=== PATIENT | female | born 1995 | race Caucasian/White ===

== ENCOUNTER 2017-01-11 22:44 | Emergency (ER) | payer SELFPAY ==
[~2017-01-11 22:44] MED LIST: ALBU6.7H INH; MEDR4PAK3 PO; ZITH250T PO
[2017-01-11 22:45] VITALS: BP 132/77; PULSE 72; RESP 16; TEMP 98.8; O2SAT 98
--- NOTE | 2017-01-11 22:56 | PD ---
Physical Exam Time Seen by Provider: 22:54 Narrative 21yo F c/o abd pain to RUQ. Reports vomiting x 2days. LMP November 30. Possibility of . Subjective fever. Migraine MURPHY. Denies vaginal discharge. VSS. patient seen in triage, Awaiting bed placement. Data Data Last Documented VS Vital Signs Date Time Temp Pulse Resp B/P Pulse Ox O2 Delivery O2 Flow Rate FiO2 01/11/17 22:45 98.8 72 16 132/77 98 Room Air [facility] Supervised Visit with FANNIE: Aylin Kulkarni Jan 11, 2017 22:56
[2017-01-12 00:32] LABS: BACTERIA, URINE RARE /hpf; BLOOD, URINE NEG (NEG); COMMENT (UR) CULTURE INDICATED; CULTURE IF INDICATED CULTURE INDICATED; GLUCOSE,URINE NEG (NEG); KETONE, URINE 10 mg/dL (NEG); MUCUS URINE MANY /lpf (OCC); NITRITE,URINE NEG (NEG); PH, URINE 5.5 (5.0-8.5); SQUAMOUS EPITHELIAL CELL URINE 5 /hpf (0-5); URINE COLOR YELLOW (YELLW/STRAW)
[2017-01-12] MEDS ORDERED: ZOFR4TAB PO (00:54)
[2017-01-12] MEDS ORDERED: CEPH-460 PO (00:54)
--- NOTE | 2017-01-12 00:54 | PD ---
HPI Chief Complaint: Abdominal Pain Time Seen by Provider: 23:59 Travel History International Travel<30 days: No Contact w/Intl Traveler<30days: No Traveled to known affect area: No History of Present Illness HPI Patient 21-year-old female presents emergency department for evaluation of headache as well as epigastric abdominal cramping and being one week late on her period. Patient is concerned because she thinks she might be . She denies any vaginal bleeding vaginal discharge low pelvic pain. She's also endorsing some mild nausea without vomiting. Denies any changes in stool habits. Denies any sick contacts. 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 HEAD: Atraumatic. Normocephalic. EYES: Pupils equal and round. No scleral icterus. No injection or drainage. ENT: No nasal bleeding or discharge. Mucous membranes pink and moist. Evidence of prior cleft palate reconstruction. NECK: Trachea midline. No JVD. CARDIOVASCULAR: Regular rate and rhythm. No murmur appreciated. RESPIRATORY: No accessory muscle use. Clear to auscultation. Breath sounds equal bilaterally. GASTROINTESTINAL: Abdomen soft, non-tender, nondistended. Hepatic and splenic margins not palpable. MUSCULOSKELETAL: No obvious deformities. No clubbing. No cyanosis. No edema. NEUROLOGICAL: Awake and alert. No obvious cranial nerve deficits. Motor grossly within normal limits. Normal speech. PSYCHIATRIC: Appropriate mood and affect; insight and judgment normal. Data Data Last Documented VS Vital Signs Date Time Temp Pulse Resp B/P Pulse Ox O2 Delivery O2 Flow Rate FiO2 01/11/17 22:45 98.8 72 16 132/77 98 Room Air Orders Urinalysis - C+S If Indicated (01/12/17 00:06) Ed Urine Pregnancytest Poc (01/12/17 00:06) Urine Culture (01/12/17 00:05) Labs Laboratory Tests Test 01/12/17 00:05 Urine Color YELLOW Urine Turbidity HAZY Urine pH 5.5 Urine Specific [place] 1.021 Urine Protein TRACE mg/dL Urine Glucose (UA) NEG mg/dL Urine Ketones 10 mg/dL Urine Occult Blood NEG Urine Nitrite NEG Urine Bilirubin NEG Urine Urobilinogen LESS THAN 2.0 MG/DL Urine Leukocyte Esterase LARGE Urine RBC 3 /hpf Urine WBC 40 /hpf Urine Squamous Epithelial 5 /hpf Cells Urine Bacteria RARE /hpf Urine Mucus MANY /lpf Microscopic Urinalysis Comment CULTURE INDICATED MDM Medical Decision Making Medical Screen Exam Complete: Yes Emergency Medical Condition: Yes Differential Diagnosis , abdominal cramping, urinary tract infection, acute abdomen highly unlikely. Narrative Course Patient 21-year-old female presents with epigastric abdominal cramping as well as headache. She is concerned that she might be and she is a week late on her period. test was performed and is negative. Afterwards patient was offered lab testing and she initially declined. A urinalysis was sent because the patient's urine was quite cloudy. She denied any dysuria. While waiting for the urinalysis to return the patient became impatient and was seen standing at the doorway and stating that she wanted to leave. Urinalysis returned and shows evidence for urinary tract infection. Given her benign abdomen I think is safe for her to be discharged this time without further workup. She will be discharged on antibiotics. Discussed barrier contraception need for STD testing, Pap smear and a regular checkup. Discussed return to ED criteria. She stable for discharge. Diagnosis Primary Impression: UTI (urinary tract infection) Qualified Code: N30.00 - Acute cystitis without hematuria Med/Other Pt SpecificInfo: Prescription(s) given Scripts Cephalexin (Keflex)500 Mg [id number] Mg PO Q6H 5 Days Ref 0 Prov:Antwon Westbrook MD 01/12/17 Ondansetron (Zofran)4 Mg Tab4 Mg PO Q6HR PRN (NAUSEA OR VOMITING) #20 TAB Ref 0 Prov:Antwon Westbrook MD 01/12/17 Disposition: 01 DISCHARGE HOME Condition: Stable Antwon Westbrook MD Jan 12, 2017 00:54
== END 2017-01-12 01:38 | disposition home or self-care (01) ==
LOC: NEPD 22:44
DX: N39.0 Urinary tract infection, site not specified (principal); F17.210 Nicotine dependence, cigarettes, uncomplicated; B96.89 Other specified bacterial agents as the cause of diseases classified elsewhere
CPT/HCPCS: 81001; 84703; 87086; 99284

== ENCOUNTER 2017-09-18 21:26 | Emergency (ER) | payer MEDICAID ==
[~2017-09-18 21:26] MED LIST changes: -ALBU6.7H INH; +CEPH-460 PO; -MEDR4PAK3 PO; -ZITH250T PO; +ZOFR4TAB PO
[2017-09-18 22:30] VITALS: BP 123/69; PULSE 108; RESP 18; TEMP 99
[2017-09-18] MEDS ORDERED: guaiFENesin SOLUTION 200 MG/10 ML CUP PO PRN (22:30)
[2017-09-18 23:11] LABS: BILIRUBIN, URINE NEG (NEG); BLOOD, URINE NEG (NEG); GLUCOSE,URINE NEG (NEG); KETONE, URINE 40 mg/dL (NEG); MUCUS URINE MANY /lpf (OCC); NITRITE,URINE NEG (NEG); SQUAMOUS EPITHELIAL CELL URINE 6 /hpf (0-5); TRANSITIONAL EPI CELLS, URINE <1 /hpf; URINE COLOR YELLOW (YELLW/STRAW); URINE LEUKOCYTE ESTERASE TRACE (NEG)
[2017-09-18] MEDS ORDERED: OSELTAMIVIR PHOSPHATE 75 MG CAP PO SCH (23:15)
[2017-09-18] MEDS ORDERED: DEXTROSE 5%-LACTATED RING INJ 1,000 ML IV ONE (23:15)
--- NOTE | 2017-09-18 23:19 | PD ---
HPI Chief Complaint Cough, nausea, vomiting Travel History International Travel<30 Days: No Contact w/Intl Traveler<30Days: No Known Affected Area: No History of Present Illness HPI 22-year-old , IUP at 22.2 care complicated by asthma The patient presents complaining of a 1-2 day history of sore throat and stuffy nose. She reports a cough started today as well as some throbbing side pains from when she coughs. She reports she felt hot but has not checked her temperature at home she reports she is been vomiting since 11 AM and is not able to hold anything down. She reports that she feels dizzy. She reports lower back achiness. She denies any leaking of fluid or vaginal bleeding. She occasionally feels movement. She denies any cramping. Weeks Gestation: 22 Para: 0 : 1 History Past Medical History Narrative Medical Asthma Obstetric History Obstetric History Past Surgical History Narrative Surgical Cleft lip/palate repair 12 Family History Narrative Family History HTN Social History Alcohol Use: No Tobacco Use: No Substance Abuse: No Allergies-Medications (Allergen,Severity, Reaction): Coded Allergies: No Known Allergies (Verified Allergy, Unknown, 09/18/17) Home Meds Active Scripts Cephalexin (Keflex) 500 Mg Cap, 500 MG PO Q6H for Infection for 5 Days, CAP 0 Refills Prov:Antwon Westbrook MD 01/12/17 Ondansetron (Zofran) 4 Mg Tab, 4 MG PO Q6HR Y for NAUSEA OR VOMITING, #20 TAB 0 Refills Prov:Antwon Westbrook MD 01/12/17 Review of Systems Except as stated in HPI: all other systems reviewed are Neg Gastrointestinal: Nausea, Vomiting Physical Exam Vital Signs Date Time Temp Pulse Resp B/P (MAP) Pulse Ox O2 Delivery O2 Flow Rate FiO2 09/18/17 22:30 99.0 18 09/18/17 22:30 108 123/69 (87) Narrative GENERAL: Well-nourished, well-developed patient. SKIN: Warm and dry. HEAD: Normocephalic and atraumatic. EYES: No scleral icterus. No injection or drainage. ENT: No nasal drainage noted. Mucous membranes pink. Airway patent. NECK: Supple, trachea midline. No JVD. CARDIOVASCULAR: Regular rate and rhythm without murmurs, gallops, or rubs. RESPIRATORY: Breath sounds equal bilaterally. No accessory muscle use. BREASTS: Deferred ABDOMEN/GI: Abdomen soft, non-tender, bowel sounds present, no rebound, no guarding Gravid GENITOURINARY: Deferred FHT's: Appropriate for gestational age as per EMR EXTREMITIES: No cyanosis or edema. BACK: Nontender without obvious deformity. NEUROLOGICAL: Awake and alert. Motor and sensory grossly within normal limits. Five out of 5 muscle strength in all muscle groups. Normal speech. Psychiatric: Grossly normal memory and affect Musculoskeletal: Grossly normal range of motion, gait, muscle strength Data Data Orders Orders Vital Signs (Adult) .ON ADMISSION (09/18/17 22:24) ^ Labor Status (09/18/17 22:24) Guaifenesin Liq (Robitussin Liq) (09/18/17 22:30) Influenzae A/B Antigen (09/18/17 22:43) Vital Signs (Adult) .ON ADMISSION (09/18/17 22:44) ^ Labor Status (09/18/17 22:44) Urinalysis - C+S If Indicated (09/18/17 22:44) Cbc No Diff, Includes Plts (09/18/17 23:14) Comprehensive Metabolic Panel (09/18/17 23:14) D5-Lr (Bolus) Inj (09/18/17 23:15) Oseltamivir (Tamiflu) (09/18/17 23:15) Labs Laboratory Tests Test 09/18/17 22:36 Urine Color YELLOW Urine Turbidity HAZY Urine pH 6.0 Urine Specific [place] 1.036 Urine Protein 30 Urine Glucose (UA) NEG Urine Ketones 40 Urine Occult Blood NEG Urine Nitrite NEG Urine Bilirubin NEG Urine Urobilinogen 2.0 Urine Leukocyte Esterase TRACE Urine RBC 1 Urine WBC 5 Urine Squamous Epithelial Cells 6 Urine Transitional Epithelial Cells <1 Urine Mucus MANY Microscopic Urinalysis Comment CULT NOT INDICATED Date/Time Source Procedure Growth Status 09/18/17 22:30 Nasal Aspirate Influenza Types A,B Antigen (SUZIE) - Final Positive For Flu A Antigen Complete MDM Plan Assessment/plan: 1. IUP at 22.2 2. Influenza: Flu swab came back positive for influenza a, will treat with Tamiflu 75 mg by mouth twice a day. Patient was given first dose here. Strict fever/nausea/vomiting precautions 3. Nausea/vomiting: Labs were drawn and IV fluids given, Zofran 4 mg given. She reports she feels better and is able to tolerate by mouth. She was given 40 mEq of potassium for potassium level of 3.3. 4. well-being heart tones appropriate for gestational age 5. Strict labor precautions 6. Follow-up with primary OB in 2-3 days or sooner if needed 7. UA: Negative Vivi Corral MD Sep 18, 2017 23:19
[2017-09-18] MEDS ORDERED: ONDANSETRON HCL 4 MG/2 ML VIAL IV PUSH ONE (23:30)
[2017-09-18 23:46] LABS: HEMATOCRIT 32.3 % (35.0-46.0); HEMOGLOBIN 11.1 GM/DL (11.6-15.3); MEAN CELL VOLUME 89.3 FL (80.0-100.0); MEAN CORPUSCULAR HEMOGLOBIN 30.7 PG (27.0-34.0); MEAN CORPUSCULAR HGB CONC 34.3 % (32.0-36.0); MEAN PLATELET VOLUME 7.7 FL (7.0-11.0); PLATELET COUNT 199 TH/MM3 (150-450); RED BLOOD COUNT 3.62 MIL/MM3 (4.00-5.30); RED CELL DISTRIBUTION WIDTH 13.3 % (11.6-17.2); WHITE BLOOD COUNT 7.2 TH/MM3 (4.0-11.0)
[2017-09-19 00:03] LABS: ALBUMIN 2.6 GM/DL (3.4-5.0); ALT (GPT) 35 U/L (10-53); AST (GOT) 33 U/L (15-37); BICARBONATE 20.6 MEQ/L (21.0-32.0); CALCIUM 8.2 MG/DL (8.5-10.1); CHLORIDE 106 MEQ/L (98-107); GLOMERULAR FILTRATION RATE 154 ML/MIN (>89); GLUCOSE,RANDOM 78 MG/DL (74-106); SODIUM (NA) 136 MEQ/L (136-145)
[2017-09-19 00:09] LABS: ALKALINE PHOSPHATASE 85 U/L (45-117); BLOOD UREA NITROGEN 8 MG/DL (7-18); TOTAL BILIRUBIN ADULT 0.5 MG/DL (0.2-1.0); TOTAL PROTEIN 6.5 GM/DL (6.4-8.2)
[2017-09-19] MEDS ORDERED: POTASSIUM CHLORIDE 20 MEQ CONTROLLED RELEASE TAB PO ONE (00:45)
== END 2017-09-19 04:21 | disposition home or self-care (01) ==
LOC: HOBED 21:26
DX: O99.512 Diseases of the respiratory system complicating pregnancy, second trimester (principal); J09.X2 Influenza due to identified novel influenza A virus with other respiratory manifestations; O21.2 Late vomiting of pregnancy; Z3A.22 22 weeks gestation of pregnancy
CPT/HCPCS: 80053; 81001; 85027; 87804; 96374; 99284; J2405; J7121

== ENCOUNTER 2017-11-05 14:49 | Emergency (ER) | payer MEDICAID, OTHER ==
--- NOTE | 2017-11-05 15:51 | PD ---
HPI Chief Complaint Bleeding after intercourse Date Seen: Nov 05, 2017 Time Seen: 15:30 Travel History International Travel<30 Days: No Contact w/Intl Traveler<30Days: No Known Affected Area: No History of Present Illness HPI Patient is 22-year-old white female at 29 weeks goes to [facility] for care, and presents complaining of vaginal bleeding noted after intercourse today. She's had no bleeding prior to this in . No other problems some nausea vomiting in early part, baby is active now, no leaking of fluid, patient noted bleeding she says they're somewhat irregular. And red and bright red at times and then the somewhat darker after that she noticed which goes to the bathroom when she wipes., when she sees it is not flowing out but its there when she wipes. heart rate tracing is reactive for 29 weeks and her contractions Weeks Gestation: 29 Para: 0 : 1 History Social History Alcohol Use: No Tobacco Use: No Substance Abuse: No Allergies-Medications (Allergen,Severity, Reaction): Coded Allergies: No Known Allergies (Verified Allergy, Unknown, 09/18/17) Home Meds Active Scripts Cephalexin (Keflex) 500 Mg Cap, 500 MG PO Q6H for Infection for 5 Days, CAP 0 Refills Prov:Antwon Westbrook MD 01/12/17 Ondansetron (Zofran) 4 Mg Tab, 4 MG PO Q6HR Y for NAUSEA OR VOMITING, #20 TAB 0 Refills Prov:Antwon Westbrook MD 01/12/17 Review of Systems General / Constitutional: No: Fever, Weight Gain, Chills, Other Eyes: No: Diploplia, Blurred Vision, Visual changes, Pain, Photophobia HENT: No: Headaches, Vertigo, Lightheadedness Cardiovascular: No: Irregular Rhythm, Chest Pain or Discomfort, Palpitations, Tachycardia, Syncope, Varicosities, Edema, Cyanosis Respiratory: No: Cough, Short of Breath, Other Gastrointestinal: No: Nausea, Vomiting, Diarrhea Genitourinary: Vaginal Bleeding, No: Decreased Urinary Output, Oliguria Musculoskeletal: No: Limited ROM, Weakness, Cramping, Edema, Pain Skin: No Rash, No Itching, No Dryness, No Lumps, No Change in Pigmentation, No Change in Nails, No Alopecia, No Lesions Neurologic: No: Weakness, Dizziness, Syncope, Focal Abnormalities, Coordination Problem, Headache, Slurred Speech, Seizures Psychiatric: No: Depression, Suicidal Ideations, Homicidal Ideation Endocrine: No: Heat Intolerance, Cold Intolerance, Polydipsia, Polyuria, Other Physical Exam Narrative GENERAL: Well-nourished, well-developed patient. SKIN: Warm and dry. HEAD: Normocephalic and atraumatic. EYES: No scleral icterus. No injection or drainage. ENT: No nasal drainage noted. Mucous membranes pink. Airway patent. NECK: Supple, trachea midline. No JVD. CARDIOVASCULAR: Regular rate and rhythm without murmurs, gallops, or rubs. RESPIRATORY: Breath sounds equal bilaterally. No accessory muscle use. BREASTS: Bilateral exam showed no masses , no retractions, no nipple discharge. ABDOMEN/GI: Abdomen soft, non-tender, bowel sounds present, no rebound, no guarding Gravid to [29-] weeks size Fundal Height: [28-] GENITOURINARY: External Genitalia: intact and normal in appearance , minimal blood on vulva speculum exam- moderate blood in vault and blood oozing from cervix which is large and friable Cervix: [bloody with possible discharge [very hard to be definitive due to blood oozing from cx-] Dilatation: [-closed] Effacement: [thick-] Station: [-3] Presentation: [breech by us-] Membranes: [intact ] Uterine Contractions: [none-] FHT's: Category: [1-] Baseline: [-133] Reactive: [-R] Variability: [mod-] Decels: [none-] EXTREMITIES: No cyanosis or edema. BACK: Nontender without obvious deformity. No CVA tenderness. NEUROLOGICAL: Awake and alert. Motor and sensory grossly within normal limits. Five out of 5 muscle strength in all muscle groups. Normal speech. Data Data Orders Orders Ob Poc Ultrasound (11/05/17 ) Labs Has had ultrasound done by me as POC ultrasound --- single intrauterine breech presentation no previa seen,. Placenta is anterior grade 0 , fetus is 27 weeks 2 days size estimated weight-- 2 pounds, ( 131 g), normal amniotic fluid noted, baby is active, heart rate in the 130s., Normal anatomy scan. By this scan the babys lagging behind in growth about 2 weeks MDM Interpretation(s) Patient is 22-year-old white female at 29 weeks sees Reena [facility] for care presents complaining of postcoital bleeding today. First bleeding she's had with this . heart rate is reactive and there are no contractions. On exam there is some blood externally and in the vagina small to moderate amount of mucus tinged blood present with blood oozing from a friable cervix, there is no active bleeding but there is some blood certainly there Impression-postcoital bleeding related to a friable cervix,there is no previa ultrasound rules that out , I can't tell if there is a direct infection of the cervix due to the amount of blood I see. The baby seems to be lagging in growth slightly approximately 2 weeks behind according to todays ultrasound. Today's measurements consistent with 27 weeks 2 days and 2 pounds estimated weight Plan- to observe the patient for another hour approximately if no increase in bleeding probably discharge home to precautionary measures bedrest and observation. Plan Plan to observe the patient mentioned above for any further bleeding if none is seen will be able to discharge the patient today, no intercourse for the foreseeable future, she is to be at bedrest for the next couple of days and to decrease the risk for bleeding and no sex as mentioned, she is to follow-up with her OB provider Diagnosis Diagnosis: Primary Impression: Postcoital bleeding Additional Impression: 29 weeks gestation of Disposition: DISCHARGE HOME Condition: Stable Elroy Paris II, MD Nov 05, 2017 15:51
== END 2017-11-05 17:22 | disposition home or self-care (01) ==
LOC: HOBED 14:49
DX: O46.8X3 Other antepartum hemorrhage, third trimester (principal); N93.0 Postcoital and contact bleeding; Z3A.29 29 weeks gestation of pregnancy
CPT/HCPCS: 76815

== ENCOUNTER 2017-12-11 10:05 | Inpatient (IN) | payer MEDICAID ==
[2017-12-11] VITALS (7 sets, daily range): BP systolic 102–134; BP diastolic 57–82; PULSE 62–82; RESP 18
[~2017-12-11] VITALS: Ht 152.4 cm; Wt 88.0 kg
--- NOTE | 2017-12-11 10:50 | PD ---
HPI Chief Complaint Possible rupture of membranes Date Seen: Dec 11, 2017 (Soni Walls MD) Travel History International Travel<30 Days: No Contact w/Intl Traveler<30Days: No Known Affected Area: No (Soni Walls MD) History of Present Illness HPI Patient is a 22-year-old at 34/2 weeks gestation presents to the [facility] with a chief complaint of possible rupture of membranes. Patient states that she woke up around 9 AM this morning with her thighs and underwear completely soaked in fluid. She went back to sleep and woke up a second time soaked. She states that she pees on herself anytime she coughs or sneezes but this time the fluid did not smell like urine. She has no other complaints today. She denies contractions, abnormal vaginal discharge, vaginal bleeding, fever, chills, or shortness of breath. She does have headaches all the time and has been having nausea and vomiting during the third trimester almost daily. She denies blurry vision and only has chest pain when she coughs and she has been coughing a lot. Patient gets care at [facility] and her labs have been mostly normal except for a positive MSAFP. She is also know to have a short cervix. No cerclage placement. Weeks Gestation: 34 Para: 0 : 1 (Soni Walls MD) History Past Medical History Narrative Medical Asthma (Soni Walls MD) Obstetric History Obstetric History Shortened cervix per (Soni Walls MD) Past Surgical History Narrative Surgical Cleft lip and cleft palate repair in 2011 (Soni Walls MD) Family History Narrative Family History Mom has hypertension. No family history of diabetes (Soni Walls MD) Social History Alcohol Use: No Tobacco Use: Yes ( <Half pack a day, about 5 cigarettes) Substance Abuse: No (Soni Walls MD) Allergies-Medications (Allergen,Severity, Reaction): Coded Allergies: No Known Allergies (Verified Allergy, Unknown, 09/18/17) Home Meds Reported Medications Albuterol 6.7 GM Inh (Proventil Hfa 6.7 GM Inh) 90 Mcg/Act Aer, 2 PUFF INH Q4- 6H Y for SHORTNESS OF BREATH, #1 INHALER 0 Refills 12/11/17 Pnv No.95/Ferrous Fum/Folic AC ( Vitamins Tablet) 28 Mg Iron-800 Mcg Tablet 12/11/17 Discontinued Scripts Cephalexin (Keflex) 500 Mg Cap, 500 MG PO Q6H for Infection for 5 Days, CAP 0 Refills Prov:Antwon Westbrook MD 01/12/17 Ondansetron (Zofran) 4 Mg Tab, 4 MG PO Q6HR Y for NAUSEA OR VOMITING, #20 TAB 0 Refills Prov:Antwon Westbrook MD 01/12/17 Review of Systems General / Constitutional: No: Fever, Chills Eyes: No: Blurred Vision HENT: Headaches Cardiovascular: No: Chest Pain or Discomfort Respiratory: Cough, No: Short of Breath Gastrointestinal: Nausea, Vomiting, No: Abdominal Pain Genitourinary: No: Dysuria (EkoSoni MD) Physical Exam Narrative GENERAL: Well-nourished, well-developed patient. SKIN: Warm and dry. HEAD: Normocephalic and atraumatic. EYES: No scleral icterus. No injection or drainage. ENT: No nasal drainage noted. Mucous membranes pink. Airway patent. NECK: Supple, trachea midline. No JVD. CARDIOVASCULAR: Regular rate and rhythm without murmurs, gallops, or rubs. RESPIRATORY: Breath sounds equal bilaterally. No accessory muscle use. BREASTS: Bilateral exam showed no masses , no retractions, no nipple discharge. ABDOMEN/GI: Abdomen soft, non-tender, bowel sounds present, no rebound, no guarding Gravid abdomen GENITOURINARY: External Genitalia: intact and normal in appearance BUS glands: [-] Cervix: [-] Dilatation: [-] Effacement: [-] Station: [-] Presentation: [-] Membranes: [intact or ruptured] Uterine Contractions: [-] FHT's: Category: I Baseline: 140 Reactive: multiple accels Variability: Moderate Decels: None EXTREMITIES: No cyanosis, minimal edema. BACK: Nontender without obvious deformity. No CVA tenderness. NEUROLOGICAL: Awake and alert. Motor and sensory grossly within normal limits. Five out of 5 muscle strength in all muscle groups. Normal speech. (EkSoni cifunetes MD) Data Data Vital Signs Reviewed: Yes Orders Orders Vital Signs (Adult) .ON ADMISSION (12/11/17 10:44) ^ Labor Status (12/11/17 10:44) ^ Non Stress Test (12/11/17 10:44) Pamg-1 Test .ONCE (12/11/17 10:45) (Soni Walls MD) [facility] Medical Record Reviewed: Yes Interpretation(s) 22 year old at 34/2 presents to be evaluated for possible rupture of membranes. Amnisure is negative. Urine dipstick was significant for specific gravity greater than 1.030 with greater than 300 protein, trace blood and small leukocyte esterase. Plan 1. Intrauterine -FHT category I - reassuring -Not ruptured -BPP done by OB diagnostics 05/08 with TRACEE of 18 -Continue routine care 2. Proteinuria -Blood pressure was initially 138/90 and dropped to 120/78 -UA showed 100 protein, trace occult blood, large leukocyte esterase, and 92 wbc with moderate bacteria - culture indicated -Spot urine protein/creatinine ratio of 1.37 and random urine protein of 247 - both elevated Plan is to admit patient on 24 hour observation for blood pressure monitoring and collection of 24 hr urine protein. Check labs including uric acid. Continue continuous monitoring. DW Dr. Corral (Soni Walls MD) Narrative Course / MDM I personally evaluated and examined patient and performed all vang components of decision making. Reassufing testing per verbal report of BPP 05/08, TRACEE 18. Previous US 32%. BP stable, but will collect 24 hour urine due to elevated PC ratio. Will Rx celestone for FLM in the even pateint requires delivery prior to 37w. [facility] NST report: Indications: IUP at 34w, elevated BP in office, elevate proteinuria FHR baseline in the 120s with moderate terminal computer operator variability, good accelerations , and no decelerations noted. THis is a category 1 FHR tracing and a reactive NST for BPP 07/10. Final dx: gestational HTN, rule out preeclampsia, reassuring testing F/U: continue EFM at this time (Vivi Corral MD) Soni Walls MD Dec 11, 2017 10:50 Vivi Corral MD Dec 12, 2017 14:37
[2017-12-11 11:33] LABS: BACTERIA, URINE MOD /hpf; BILIRUBIN, URINE NEG (NEG); BLOOD, URINE TRACE (NEG); GLUCOSE,URINE NEG (NEG); KETONE, URINE NEG (NEG); MUCUS URINE FEW /lpf (OCC); NITRITE,URINE NEG (NEG); PH, URINE 6.5 (5.0-8.5); SQUAMOUS EPITHELIAL CELL URINE 8 /hpf (0-5); URINE COLOR YELLOW (YELLW/STRAW); URINE LEUKOCYTE ESTERASE LARGE (NEG)
--- NOTE | 2017-12-11 12:09 | PD ---
History of Present Illness History of Present Illness NST report Indications: IUP at 34 cervix, shortened cervix, borderline TRACEE, LOF, elevated BP and protein Findings: FHR baseline in the 120s-130s with moderate skilled nursing variability, good accelerations, and no decelerations noted. FHR is reassuring and reactive for gestational age. F/U: continue EFM Final dx: IUP at 34 cervix, shortened cervix, normal TRACEE with no evidence of PPROM, elevated BP and protein creatinine ratio Vivi Corral MD Dec 11, 2017 12:09
[2017-12-11] MEDS ORDERED: SODIUM CHLORIDE 0.9% FLUSH 10 ML FLUSH IV FLUSH PRN (12:15)
[2017-12-11] MEDS ORDERED: ACETAMINOPHEN 325 MG TAB PO PRN (12:15)
[2017-12-11] MEDS ORDERED: ONDANSETRON HCL 4 MG/2 ML VIAL IV PUSH PRN (12:15)
--- NOTE | 2017-12-11 12:25 | HHI.HP ---
History & Physical H&P [facility] OB ED Note (Detail) Patient Name: Edith Hastings Unit Number: [id number] Date of : 1995 Patient Status: Admitted Inpatient (obs) Attending Doctor: Vivi Corral MD HPI HPI Chief Complaint Possible rupture of membranes Date Seen: Dec 11, 2017 Travel History International Travel<30 Days: No Contact w/Intl Traveler<30Days: No Known Affected Area: No History of Present Illness HPI Patient is a 22-year-old at 34/2 weeks gestation presents to the [facility] ED with a chief complaint of possible rupture of membranes. Patient states that she woke up around 9 AM this morning with her thighs and underwear completely soaked in fluid. She went back to sleep and woke up a second time soaked. She states that she pees on herself anytime she coughs or sneezes but this time the fluid did not smell like urine. She has no other complaints today. She denies contractions, abnormal vaginal discharge, vaginal bleeding, fever, chills, or shortness of breath. She does have headaches all the time and has been having nausea and vomiting during the third trimester almost daily. She denies blurry vision and only has chest pain when she coughs and she has been coughing a lot. Patient gets care at [facility] and her labs have been mostly normal except for a positive MSAFP. She is also known to have a short cervix. No cerclage placement. Weeks Gestation: 34 Para: 0 : 1 History (Limited) History Past Medical History Narrative Medical Asthma Obstetric History Obstetric History Shortened cervix per Past Surgical History Narrative Surgical Cleft lip and cleft palate repair in 2011 Family History Narrative Family History Mom has hypertension. No family history of diabetes Social History Alcohol Use: No Tobacco Use: Yes ( <Half pack a day, about 5 cigarettes) Substance Abuse: No Allergies-Medications Allergies-Medications (Allergen,Severity, Reaction): Coded Allergies: No Known Allergies (Verified Allergy, Unknown, 09/18/17) Home Meds Active Scripts Cephalexin (Keflex) 500 Mg Cap, 500 MG PO Q6H for Infection for 5 Days, CAP 0 Refills Prov:Antwon Westbrook MD 4/14/17 Ondansetron (Zofran) 4 Mg Tab, 4 MG PO Q6HR Y for NAUSEA OR VOMITING, #20 TAB 0 Refills Prov:Antwon Westbrook MD 01/12/17 ROS Review of Systems General / Constitutional: No: Fever, Chills Eyes: No: Blurred Vision HENT: Headaches Cardiovascular: No: Chest Pain or Discomfort Respiratory: Cough, No: Short of Breath Gastrointestinal: Nausea, Vomiting, No: Abdominal Pain Genitourinary: No: Dysuria Physical Exam Physical Exam Narrative GENERAL: Well-nourished, well-developed patient. SKIN: Warm and dry. HEAD: Normocephalic and atraumatic. EYES: No scleral icterus. No injection or drainage. ENT: No nasal drainage noted. Mucous membranes pink. Airway patent. NECK: Supple, trachea midline. No JVD. CARDIOVASCULAR: Regular rate and rhythm without murmurs, gallops, or rubs. RESPIRATORY: Breath sounds equal bilaterally. No accessory muscle use. BREASTS: Bilateral exam showed no masses , no retractions, no nipple discharge. ABDOMEN/GI: Abdomen soft, non-tender, bowel sounds present, no rebound, no guarding Gravid abdomen GENITOURINARY: External Genitalia: intact and normal in appearance BUS glands: [-] Cervix: [-] Dilatation: [-] Effacement: [-] Station: [-] Presentation: [-] Membranes: intact Uterine Contractions: [-] FHT's: Category: I Baseline: 140 Reactive: multiple accels Variability: Moderate Decels: None EXTREMITIES: No cyanosis, minimal edema. BACK: Nontender without obvious deformity. No CVA tenderness. NEUROLOGICAL: Awake and alert. Motor and sensory grossly within normal limits. Five out of 5 muscle strength in all muscle groups. Normal speech. Data Data Data Vital Signs Reviewed: Yes Orders Orders Vital Signs (Adult) .ON ADMISSION (12/11/17 10:44) ^ Labor Status (12/11/17 10:44) ^ Non Stress Test (12/11/17 10:44) Pamg-1 Test .ONCE (12/11/17 10:45) [facility] Medical Record Reviewed: Yes Interpretation(s) 22 year old at 34/2 presents to be evaluated for possible rupture of membranes. Amnisure is negative. Urine dipstick was significant for specific gravity greater than 1.030 with greater than 300 protein, trace blood and small leukocyte esterase. Plan 1. Intrauterine -FHT category I - reassuring -Not ruptured -BPP done by OB diagnostics 05/08 with TRACEE of 18 -Continue routine care 2. Proteinuria -Blood pressure was initially 138/90 and dropped to 120/78 -UA showed 100 protein, trace occult blood, large leukocyte esterase, and 92 wbc with moderate bacteria - culture indicated -Spot urine protein/creatinine ratio of 1.37 and random urine protein of 247 - both elevated Plan is to admit patient on 24 hour observation for blood pressure monitoring and collection of 24 hr urine protein. Check labs including uric acid. Continue continuous monitoring. DW Dr. Corral (Soni Walls MD) H&P I personally evaluated and examined patient and performed all vang components of decision making. No evidence of ROM. I personally reviewed FHR tracing. See [facility] note for FHR documentation and other attending notes. SMS (Vivi Corral MD) Soni Walls MD Dec 11, 2017 12:25 Vivi Corral MD Dec 12, 2017 14:38
[2017-12-11 13:35] LABS: AUTOMATED NEUTROPHIL # 6.1 TH/MM3 (1.8-7.7); BASOPHIL % 0.3 % (0.0-2.0); EOSINOPHIL # 0.2 TH/MM3 (0-0.4); EOSINOPHIL % 2.1 % (0.0-4.0); HEMATOCRIT 31.1 % (35.0-46.0); HEMOGLOBIN 11.1 GM/DL (11.6-15.3); LYMPH % 25.1 % (9.0-44.0); LYMPHOCYTE # 2.3 TH/MM3 (1.0-4.8); MEAN CELL VOLUME 89.4 FL (80.0-100.0); MEAN CORPUSCULAR HEMOGLOBIN 31.8 PG (27.0-34.0); MEAN CORPUSCULAR HGB CONC 35.5 % (32.0-36.0); MEAN PLATELET VOLUME 8.3 FL (7.0-11.0); MONO % 6.5 % (0.0-8.0); MONOCYTE # 0.6 TH/MM3 (0-0.9); PLATELET COUNT 210 TH/MM3 (150-450); RED BLOOD COUNT 3.48 MIL/MM3 (4.00-5.30); RED CELL DISTRIBUTION WIDTH 13.9 % (11.6-17.2); WHITE BLOOD COUNT 9.2 TH/MM3 (4.0-11.0)
[2017-12-11] MEDS: BETAMETHASONE SOD PHOS/ACETATE SUSP 30 MG/5 ML VIAL IM SCH (13:37)
[2017-12-11] MEDS ORDERED: ALBU6.7H INH (13:39)
[2017-12-11] MEDS ORDERED: PRENTAB7 (13:39)
[2017-12-11] MEDS: SODIUM CHLORIDE 0.9% FLUSH 10 ML FLUSH IV FLUSH SCH (21:30)
[2017-12-12] VITALS (50 sets, daily range): BP systolic 106–151; BP diastolic 52–107; PULSE 64–98; RESP 16–19; TEMP 97.7–98.3; O2SAT 88–99
[2017-12-12] MEDS ORDERED: MULTIVIT/MIN/PREN/FOL AC/IRON PRENATAL TAB PO SCH (09:00)
[2017-12-12] MEDS: SODIUM CHLORIDE 0.9% FLUSH 10 ML FLUSH IV FLUSH SCH ×2 (09:00→21:37)
[2017-12-12] MEDS ORDERED: LACTATED RINGER'S 1000 ML INJ 1,000 ML IV SCH ×3 (09:30→16:26)
[2017-12-12] MEDS ORDERED: LACTATED RINGER'S 1000 ML INJ 1,000 ML IV ONE ×2 (09:35→12:00)
--- NOTE | 2017-12-12 09:54 | HHI.PR ---
Soni Walls MD Dec 12, 2017 09:54
[2017-12-12] MEDS ORDERED: MORPHINE SULFATE PF 5 MG/10 ML VIAL ONE (10:01)
[2017-12-12] MEDS ORDERED: ONDANSETRON HCL 4 MG/2 ML VIAL ONE (10:07)
--- NOTE | 2017-12-12 10:14 | HHI.PR ---
Subjective Remarks [facility] Attending Patient was admitted for elevated PC ratio, although had primarily normal BP in [facility]. She was admitted for 23 hour observation for a 24 hour urine due to the elevated PC ratio and received one dose of celestone. A review of the patient's records showed the patient had a U/S on 12/13/17 was 1841g (32%). This morning, patient was noted to have a 3 minute deceleration to the 80s to 90s with resolution to baseline, then to 90s-100s for an additional 2-3 minutes and again resolution to baseline of 110s-120s at about 8:50am. The patient was placed on O2. IVF were administered. The patient had a <1 minute variable appearing decel at 9:13am, followed by resolution to baseline. At 9:28, the patient was noted to have another deceleration to to the 60s-70s for 2 minutes, again with resolution to baseline with good LTV, good accels. Despite the decels, the fetus remained good variability throughout. The decision was made to proceed with delivery due to several decelerations over the period fo 45 minutes and the concern for wellbeing should the pattern persist. . US was ordered for TRACEE/BPP yesterday, but Ob diagnostics repeated anatomic survey yesterday as patient had never been scanned here with EFW 1738, BPP 8/8, and SD ratio 2.6, although during verbal report there was no indication of abnormality. The patient was consented for delivery with risks including but not limited to pain, infection, bleeding, injury to other organs like the bladder, bowels, nerves, vessels, injury to the baby, need for repeat operation, need for blood transfusion, need for hysterectomy, wound infection/ breakdown, and other possible complications. We discussed that the would likely require a NICU stay due to prematurity. We also discussed the alternative of delaying delivery for more monitoring and possibly her second dose of celestone, but that if we did not proceedproceeding with delivery, we are risking potential adverse / outcomes should they become clearly repetitive pattern of decelerations and or prolonged bradycardia as well as increased maternal risks with the stat delivery. The heart rate tracing after the decision was made for delivery was overall reassuring with baseline remaining in the 110s to 120s, moderate long- term variability, good accelerations, and no repetitive pattern of decelerations. Dr. Paris was given report on the patient and proceeded to the OR for delivery. Objective Vital Signs Date Time Temp Pulse Resp B/P (MAP) Pulse Ox O2 Delivery O2 Flow Rate FiO2 12/12/17 08:55 81 12/12/17 08:41 79 128/65 (86) 12/12/17 08:40 97.9 16 12/12/17 00:25 74 124/52 (76) 12/12/17 00:24 98.2 12/12/17 00:24 16 12/11/17 20:00 80 116/60 (78) 12/11/17 13:51 75 133/57 (82) 12/11/17 13:50 18 12/11/17 11:31 62 120/78 (92) 12/11/17 11:16 73 102/82 (89) 12/11/17 11:01 82 124/80 (95) 12/11/17 10:58 67 134/72 (92) Result Diagram: 12/11/17 1235 Vivi Corral MD Dec 12, 2017 10:14
[2017-12-12] MEDS ORDERED: CITRIC ACID-SODIUM CITRATE LIQ 30 ML UDC PO SCH (11:15)
[2017-12-12] MEDS ORDERED: SIMETHICONE 80 MG CHEWABLE TAB PO PRN (11:30)
[2017-12-12] MEDS ORDERED: DOCUSATE SODIUM 50 MG/SENNA 8.6 MG TAB PO PRN (11:30)
[2017-12-12] MEDS ORDERED: SODIUM CHLORIDE 0.9% FLUSH 10 ML FLUSH IV FLUSH PRN (11:30)
[2017-12-12] MEDS ORDERED: ACETAMINOPHEN 325 MG TAB PO PRN (11:30)
[2017-12-12] MEDS ORDERED: OXYTOCIN 30 UNITS-500ML PREMIX 500 ML IV ONE (11:30)
[2017-12-12] MEDS ORDERED: KETOROLAC TROMETHAMINE 60 MG/2 ML (IM) VIAL IM PRN (11:30)
[2017-12-12] MEDS ORDERED: ONDANSETRON HCL 4 MG/2 ML VIAL IV PUSH PRN (11:30)
[2017-12-12] MEDS ORDERED: oxyCODONE/ACETAMINOPHEN 5 MG/325 MG TAB PO PRN (11:30)
[2017-12-12] MEDS ORDERED: DEXAMETHASONE SOD PHOS 4 MG/ML VIAL IV ONE (12:00)
[2017-12-12] MEDS ORDERED: MAGNESIUM SULFATE 4 GM PREMIX 100 ML ONE (12:00)
[2017-12-12] MEDS ORDERED: OXYTOCIN 10 UNIT/ML AMP IV ONE (12:00)
[2017-12-12] MEDS ORDERED: MAGNESIUM SULFATE 4 GM PREMIX 100 ML IV ONE (12:00)
[2017-12-12] MEDS ORDERED: ceFAZolin INJ 1,000 MG VIAL IV ONE (12:00)
[2017-12-12] MEDS ORDERED: PHENYLEPH/NS 1000 MCG/10 ML SYR IV ONE (12:00)
[2017-12-12] MEDS ORDERED: MAGNESIUM SULFATE 40 GM PREMIX 1,000 ML ONE (12:01)
[2017-12-12] MEDS ORDERED: MAGNESIUM SULFATE 40 GM PREMIX 1,000 ML IV SCH (12:30)
--- NOTE | 2017-12-12 12:39 | MP ---
cc: Elroy Paris MD DATE OF OPERATION: 12/12/2017 PREOPERATIVE DIAGNOSIS: 34-1/2 week intrauterine with severe preeclampsia, fetus with IUGR and a nonreassuring heart rate tracing. POSTOPERATIVE DIAGNOSIS: 34-1/2 week intrauterine with severe preeclampsia, fetus with IUGR and a nonreassuring heart rate tracing. PROCEDURE PERFORMED: Primary low transverse section . SURGEON: Elroy Paris MD ANESTHESIA: Spinal. PREOP NOTE: Patient is a 22-year-old white female G1, P0 at 34 weeks and 3 days who presented referred from [facility]'s clinic for elevated proteinuria and blood pressure. She was noted to have elevated protein creatinine ratio of 1.2. She was monitored. Ultrasound done showed intrauterine growth restriction of less than the 3rd percentile. She was monitored, noted to have spontaneous bradycardic episodes repetitively spaced out, but was a repetitive situation. She received one dose of steroids IM. It was felt the patient needed delivery at that time transabdominally due to nonreassuring heart rate tracing in the face of PIH with IUGR. PROCEDURE: The patient was taken to the operating room, placed in the supine position on the operating room table. After adequate spinal anesthesia was administered, she was prepped and draped for abdominal surgery. A Pfannenstiel incision was made in the lower abdomen and carried to the fascia sharply. The fascia was dissected off the rectus muscle and the rectus split in the midline. The peritoneal cavity entered sharply. The bladder blade place for the incision and the visceral peritoneum reflected off the lower uterine segment and bladder behind the bladder blade. A transverse hysterotomy was made and extended bluntly bilaterally. Clear fluid noted. A female was delivered at 10:39 a.m. weight 1900 g. 's were 6 and 9. Cord pH 7.29. There were no complications at delivery. Delayed cord clamping was done. Cord blood was obtained. The placenta was sent to pathology. The uterus exteriorized. The hysterotomy closed with a running layer of 0 chromic followed by imbricating suture of same. Hemostasis achieved. The bladder reapproximated with a running layer of 2-0 Vicryl . The uterus elevated. The ovaries and tubes noted to be normal. The blood was suctioned from the cul-de-sac and gutters. The uterus was replaced in the peritoneal cavity. The parieto-peritoneum closed in a running layer of 2-0 Vicryl . The muscle reapproximated with stick ties of chromic and Vicryl . The fascia closed with a running layer of 0 Vicryl . The subcutaneous tissue reapproximated with a 3-0 plain catgut suture in a running fashion. Skin closed with 3-0 Monocryl subcuticular stitch. A pressure dressing with Steri-Strips applied. The estimated blood loss was 500 cc. There were no complications. The sponge and needle counts correct x 2. The baby taken to the NICU with nursery staff. Mother to recovery room doing well. MD LUIS FELIPE Martinez/KARINE , 11:35 AM , 12:38 PM
[2017-12-12 12:56] LABS: ALBUMIN 2.3 GM/DL (3.4-5.0); AST (GOT) 18 U/L (15-37); BLOOD UREA NITROGEN 7 MG/DL (7-18); CALCIUM 8.5 MG/DL (8.5-10.1); CHLORIDE 107 MEQ/L (98-107); CREATININE 0.59 MG/DL (0.50-1.00); GLOMERULAR FILTRATION RATE 127 ML/MIN (>89); GLUCOSE,RANDOM 73 MG/DL (74-106); SODIUM (NA) 139 MEQ/L (136-145)
[2017-12-12 12:57] LABS: ALT (GPT) 12 U/L (10-53)
[2017-12-12] MEDS: BETAMETHASONE SOD PHOS/ACETATE SUSP 30 MG/5 ML VIAL IM SCH (13:00)
[2017-12-12 13:05] LABS: ALKALINE PHOSPHATASE 170 U/L (45-117); TOTAL BILIRUBIN ADULT 0.3 MG/DL (0.2-1.0); TOTAL PROTEIN 5.8 GM/DL (6.4-8.2)
[2017-12-12] MEDS ORDERED: diphenhydrAMINE HCL 50 MG/ML VIAL IM ONE (16:30)
[2017-12-12] MEDS: ceFAZolin 2 GM PREMIX 50 ML IV SCH (18:54)
[2017-12-12] MEDS ORDERED: SODIUM CHLORIDE 0.9% FLUSH 10 ML FLUSH IV FLUSH SCH (21:00)
[2017-12-12] MEDS ORDERED: ZOLPIDEM TARTRATE 5 MG TAB PO PRN (21:00)
[2017-12-12] MEDS ORDERED: OXYTOCIN 30 UNITS-500ML PREMIX 500 ML IV PRN (21:30)
[2017-12-12] MEDS: oxyCODONE/ACETAMINOPHEN 5 MG/325 MG TAB PO PRN (23:16)
[2017-12-13 00:01] VITALS: BP 120/74; PULSE 84
[2017-12-13 00:50] VITALS: BP 118/81; PULSE 65; RESP 16; TEMP 97.7; O2SAT 95
[2017-12-13] MEDS ORDERED: NICOTINE 14 MG/24 HR PATCH T-DERMAL ONE (01:45)
[2017-12-13] MEDS: ceFAZolin 2 GM PREMIX 50 ML IV SCH (02:34)
[2017-12-13 04:30] VITALS: BP 133/76; PULSE 78; RESP 16; TEMP 97.9
[2017-12-13 05:42] LABS: AUTOMATED NEUTROPHIL # 11.2 TH/MM3 (1.8-7.7); BASOPHIL % 0.1 % (0.0-2.0); HEMATOCRIT 28.5 % (35.0-46.0); HEMOGLOBIN 9.6 GM/DL (11.6-15.3); LYMPH % 12.5 % (9.0-44.0); LYMPHOCYTE # 1.7 TH/MM3 (1.0-4.8); MEAN CELL VOLUME 88.2 FL (80.0-100.0); MEAN CORPUSCULAR HEMOGLOBIN 29.6 PG (27.0-34.0); MEAN CORPUSCULAR HGB CONC 33.6 % (32.0-36.0); MEAN PLATELET VOLUME 8.6 FL (7.0-11.0); MONO % 4.8 % (0.0-8.0); MONOCYTE # 0.7 TH/MM3 (0-0.9); NEUT % 82.6 % (16.0-70.0); PLATELET COUNT 208 TH/MM3 (150-450); RED BLOOD COUNT 3.23 MIL/MM3 (4.00-5.30); RED CELL DISTRIBUTION WIDTH 14.1 % (11.6-17.2); WHITE BLOOD COUNT 13.6 TH/MM3 (4.0-11.0)
--- NOTE | 2017-12-13 07:29 | HHI.OB ---
Subjective Post Operative Day: 1 Remarks Postop day #1. AFVSS overnight. Pain currently 6/10. Percocet did not help much. Encouraged to try Motrin. Lochia < a period. Denies dysuria. She is feeding the baby via breast and bottle. Encouraged her to pump at home. Appetite good. No nausea or vomiting. Positive flatus. Negative bowel movement. Ambulating well. Denies calf pain, shortness of breath, or chest pain. Otherwise, she is doing well this morning and has no other complaints. Objective Vitals/I&O Vital Signs Date Time Temp Pulse Resp B/P (MAP) Pulse Ox O2 Delivery O2 Flow Rate FiO2 12/13/17 04:30 97.9 78 16 133/76 (95) 12/13/17 00:50 97.7 95 12/13/17 00:50 65 12/13/17 00:50 16 12/13/17 00:50 118/81 (93) 12/13/17 00:16 17 12/13/17 00:01 84 120/74 (89) 12/12/17 23:01 67 122/61 (81) 12/12/17 22:01 77 111/57 (75) 12/12/17 21:01 78 122/73 (89) 12/12/17 20:01 75 124/69 (87) 12/12/17 19:37 97.9 17 12/12/17 19:01 84 123/66 (85) 12/12/17 18:30 17 12/12/17 18:01 87 120/72 (88) 12/12/17 17:40 71 96 12/12/17 17:35 73 94 12/12/17 17:30 90 98 12/12/17 17:30 98.3 16 12/12/17 17:25 93 96 12/12/17 17:20 64 91 12/12/17 17:15 64 89 12/12/17 17:10 82 94 12/12/17 17:05 90 95 12/12/17 17:01 90 106/65 (79) 12/12/17 17:00 89 95 12/12/17 16:58 17 12/12/17 16:55 67 88 12/12/17 16:50 75 92 12/12/17 16:45 81 92 12/12/17 16:41 82 116/67 (83) 12/12/17 16:35 83 96 12/12/17 16:30 79 93 12/12/17 16:25 90 95 12/12/17 16:20 97 97 12/12/17 16:15 84 94 12/12/17 16:10 88 93 12/12/17 16:05 85 93 12/12/17 16:00 88 95 12/12/17 15:20 95 96 12/12/17 15:15 96 95 12/12/17 15:10 93 95 12/12/17 15:05 91 95 12/12/17 15:02 16 12/12/17 15:01 94 123/69 (87) 12/12/17 15:00 98 95 12/12/17 14:15 17 12/12/17 14:15 96 12/12/17 14:14 91 132/82 (99) 12/12/17 12:30 66 16 117/63 (81) 99 12/12/17 12:30 97.7 12/12/17 12:15 76 17 115/56 (75) 99 12/12/17 12:00 78 17 98 12/12/17 12:00 151/107 (122) 12/12/17 12:00 120/61 (80) 12/12/17 11:45 79 19 141/74 (96) 98 12/12/17 11:25 97.7 84 17 119/55 (76) 98 12/12/17 08:55 81 12/12/17 08:41 79 128/65 (86) 12/12/17 08:40 97.9 16 Result Diagram: 12/13/17 0514 12/11/17 1235 Objective Remarks GENERAL: Well-nourished, well-developed patient. CARDIOVASCULAR: Regular rate and rhythm without murmurs, gallops, or rubs. RESPIRATORY: Breath sounds equal bilaterally. No accessory muscle use. ABDOMEN/GI: Abdomen soft, non-tender, bowel sounds present. Incision: Clean, dry and intact. Fundus: Firm, non-tender below umbilicus. GENITOURINARY: Light to moderate bleeding. EXTREMITIES: No cyanosis or edema, non-tender, without signs of DVT. Medications and IVs Current Medications Medications (Trade) Dose Ordered Sig/Ramu Route Start Time Stop Time Status Last Admin (Stuartnatal Plus 3 ) 1 tab DAILY PO 12/12/17 09:00 (NS Flush) 2 ml BID IV FLUSH 12/11/17 21:00 12/11/17 21:30 (NS Flush) 2 ml UNSCH PRN IV FLUSH 12/11/17 12:15 (Bicitra Liq) 30 ml NETWORK PLANNER PO 12/12/17 11:15 12/16/17 11:14 12/12/17 11:55 Cefazolin Sodium 1000 mg/Sodium Chloride 100 ml @ 200 mls/hr NETWORK PLANNER IV 12/12/17 10:45 12/16/17 10:44 Lactated Ringer's 1,000 ml @ 100 mls/hr Q10H IV 12/12/17 16:26 12/13/17 12:25 Oxytocin 500 ml @ 100 mls/hr UNSCH X1 PRN IV 12/12/17 21:30 12/13/17 21:29 (Mylicon Chew) 80 mg QID PRN PO 12/12/17 11:30 (Tylenol) 650 mg Q6H PRN PO 12/12/17 11:30 (Motrin) 600 mg Q6H PRN PO 12/12/17 11:30 (Toradol Inj) 60 mg UNSCH X1 PRN IM 12/12/17 11:30 12/13/17 11:29 (Percocet 5-325 Mg) 1 tab Q4H PRN PO 12/12/17 11:30 12/12/17 23:16 (Percocet 5-325 Mg) 2 tab Q4H PRN PO 12/12/17 11:30 (Lucie-Colace) 2 tab Q12H PRN PO 12/12/17 11:30 (Ambien) 5 mg HS PRN PO 12/12/17 21:00 (M-M-R Ii Inj) 0.5 ml ONCE ONCE SQ 12/13/17 16:00 12/13/17 16:01 (Boostrix Inj) 0.5 ml ONCE ONCE IM 12/13/17 16:00 12/13/17 16:01 (Zofran Inj) 4 mg Q6H PRN IV PUSH 12/12/17 11:30 Magnesium Sulfate 1,000 ml @ 50 mls/hr Q20H IV 12/12/17 12:30 12/12/17 12:09 (Habitrol 14 Mg Patch.24 Hr) 1 patch DAILY T-DERMAL 12/13/17 09:00 Miscellaneous Information 1 HS T-DERMAL 12/13/17 21:00 Assessment/Plan Assessment and Plan 22 y/o female who is POD#1 s/p CS for distress and IUGR -Continue routine care -Percocet and Motrin PRN pain -Pericolase PRN for constipation -Encouraged OOB. Advised pelvic rest for 6 wks -Will need a follow-up appointment within 1 week for incision check -Re: ctrl -does not want control at this time. She will remain abstinent for 6 weeks and decide during that time Pre-eclampsia -Was on magnesium for 12 hours -Blood pressures have been within normal limits -no requirement for medications at this time -She may need blood pressure check Discussed with Dr. Paris Discharge Planning Discharge in 2-3 days. Baby is currently in the NICU. She may need to stay- close room after discharge. Soni Walls MD Dec 13, 2017 07:29
[2017-12-13] MEDS ORDERED: diphenhydrAMINE HCL 25 MG CAP PO PRN (07:30)
[2017-12-13 08:00] VITALS: BP 118/75; PULSE 71; RESP 18; TEMP 97.7; O2SAT 95
[2017-12-13] MEDS ORDERED: NICOTINE 14 MG/24 HR PATCH T-DERMAL SCH (09:00)
[2017-12-13] MEDS: IBUPROFEN 600 MG TAB PO PRN ×3 (09:25→22:44)
[2017-12-13] MEDS ORDERED: PORACTANT ALFA 120 MG/1.5 ML VIAL I-TRACHE ONE (11:00)
[2017-12-13 12:00] VITALS: BP 109/78; PULSE 87; RESP 20; TEMP 97.7; O2SAT 97
[2017-12-13] MEDS: oxyCODONE/ACETAMINOPHEN 5 MG/325 MG TAB PO PRN (15:35)
[2017-12-13] MEDS ORDERED: MEASLES, MUMPS, RUBELLA VACCINE 0.5 ML VIAL SQ ONE (16:00)
[2017-12-13] MEDS ORDERED: DIPHTH/TETANUS/ACEL PERTUSSIS (BOOSTER) 0.5 ML VIAL/PFS IM ONE (16:00)
[2017-12-13 19:25] VITALS: BP 125/69; PULSE 70; RESP 16; TEMP 98.3
[2017-12-13] MEDS ORDERED: REMOVE OLD NICODERM (NICOTINE) PATCH T-DERMAL SCH (21:00)
[2017-12-14 00:14] VITALS: PULSE 84; RESP 16; TEMP 97.8
[2017-12-14 00:15] VITALS: BP 126/73
[2017-12-14 04:51] VITALS: BP 110/64; PULSE 86; RESP 18; TEMP 97.9
--- NOTE | 2017-12-14 06:58 | HHI.OB ---
Subjective Post Operative Day: 2 Remarks Postop day #2. AFVSS overnight. Pain well controlled. Lochia < a period. Denies dysuria. She is feeding the baby via breast and bottle. Pumped once so far. Appetite good. No nausea or vomiting. Positive flatus. Ambulating well. Denies calf pain, shortness of breath, or chest pain. Otherwise, she is doing well this morning and has no other complaints. Objective Vitals/I&O Vital Signs Date Time Temp Pulse Resp B/P (MAP) Pulse Ox O2 Delivery O2 Flow Rate FiO2 12/14/17 04:51 97.9 86 18 110/64 (79) 12/14/17 00:15 126/73 (90) 12/14/17 00:14 84 16 12/14/17 00:14 97.8 12/13/17 19:25 98.3 70 16 125/69 (87) 12/13/17 12:00 87 20 109/78 (88) 97 12/13/17 12:00 97.7 12/13/17 08:00 97.7 71 18 118/75 (89) 95 Result Diagram: 12/13/17 0514 12/11/17 1235 Objective Remarks GENERAL: Well-nourished, well-developed patient. CARDIOVASCULAR: Regular rate and rhythm without murmurs, gallops, or rubs. RESPIRATORY: Breath sounds equal bilaterally. No accessory muscle use. ABDOMEN/GI: Abdomen soft, non-tender, bowel sounds present. Incision: Clean, dry and intact. Fundus: Firm, non-tender below umbilicus. GENITOURINARY: Light to moderate bleeding. EXTREMITIES: No cyanosis or edema, non-tender, without signs of DVT. Medications and IVs Current Medications Medications (Trade) Dose Ordered Sig/Ramu Route Start Time Stop Time Status Last Admin (Stuartnatal Plus 3 ) 1 tab DAILY PO 12/12/17 09:00 12/13/17 09:25 (NS Flush) 2 ml BID IV FLUSH 12/11/17 21:00 12/11/17 21:30 (NS Flush) 2 ml UNSCH PRN IV FLUSH 12/11/17 12:15 (Bicitra Liq) 30 ml PRINTING PRESS OPERATOR PO 12/12/17 11:15 12/16/17 11:14 12/12/17 11:55 Cefazolin Sodium 1000 mg/Sodium Chloride 100 ml @ 200 mls/hr PRINTING PRESS OPERATOR IV 12/12/17 10:45 12/16/17 10:44 (Mylicon Chew) 80 mg QID PRN PO 12/12/17 11:30 (Tylenol) 650 mg Q6H PRN PO 12/12/17 11:30 12/13/17 22:43 (Motrin) 600 mg Q6H PRN PO 12/12/17 11:30 12/13/17 22:44 (Percocet 5-325 Mg) 1 tab Q4H PRN PO 12/12/17 11:30 12/13/17 15:35 (Percocet 5-325 Mg) 2 tab Q4H PRN PO 12/12/17 11:30 (Lucie-Colace) 2 tab Q12H PRN PO 12/12/17 11:30 12/13/17 22:44 (Ambien) 5 mg HS PRN PO 12/12/17 21:00 (Zofran Inj) 4 mg Q6H PRN IV PUSH 12/12/17 11:30 Magnesium Sulfate 1,000 ml @ 50 mls/hr Q20H IV 12/12/17 12:30 12/12/17 12:09 (Habitrol 14 Mg Patch.24 Hr) 1 patch DAILY T-DERMAL 12/13/17 09:00 Miscellaneous Information 1 HS T-DERMAL 12/13/17 21:00 (Benadryl) 25 mg Q6H PRN PO 12/13/17 07:30 Assessment/Plan Assessment and Plan 22 y/o female who is POD#2 s/p CS for distress and IUGR -Continue routine care -Percocet and Motrin PRN pain -Pericolase PRN for constipation -Encouraged OOB. Advised pelvic rest for 6 wks -Will need a follow-up appointment within 1 week for incision check and in 6 weeks for a post- visit -Re: ctrl -does not want control at this time. She will remain abstinent for 6 weeks and decide during that time Pre-eclampsia -Was on magnesium for 12 hours -Blood pressures have been within normal limits -no requirement for medications at this time Discussed with Dr. Corral Discharge Planning Discharge today. Baby is currently in the NICU. She may need to stay-close room after discharge. Soni Walls MD Dec 14, 2017 06:58
[2017-12-14] MEDS ORDERED: IBUP-232 PO (07:00)
[2017-12-14] MEDS ORDERED: OXYC1TAB63 PO (07:00)
--- NOTE | 2017-12-14 07:01 | HHI.DCPOC ---
Discharge Care Plan Diagnosis: (1) delivery delivered (2) Severe pre-eclampsia Goals to Promote Your Health * To prevent worsening of your condition and complications * To maintain your health at the optimal level Directions to Meet Your Goals Take your medications as prescribed Follow your dietary instruction Follow activity as directed Keep your appointments as scheduled Take your immunizations and boosters as scheduled If your symptoms worsen call your PCP, if no PCP go to Urgent Care Center or Emergency Room Smoking is Dangerous to Your Health. Avoid second hand smoke Call the 24-hour hour crisis hotline for domestic abuse at Soni Walls MD Dec 14, 2017 07:01
[2017-12-14] MEDS: IBUPROFEN 600 MG TAB PO PRN (07:30)
[2017-12-14 07:39] VITALS: BP 122/79; PULSE 72; RESP 18; TEMP 98.2
== END 2017-12-14 08:14 | disposition home or self-care (01) | DRG 765 ==
LOC: HOBED 10:05 → H2EA 12:03 → OBSVTOIN 12-12 09:48 → H1EA 12-13 00:39
PROVIDERS: ADMIT Obstetrics & Gynecology; ATTEND Obstetrics & Gynecology
PROC: 10D00Z1 Extraction of Products of Conception, Low, Open Approach (ICD-10-PCS; principal; 2017-12-12)
DX: O14.14 Severe pre-eclampsia complicating childbirth (principal); O26.873 Cervical shortening, third trimester; J45.909 Unspecified asthma, uncomplicated; O99.52 Diseases of the respiratory system complicating childbirth; O77.9 Labor and delivery complicated by fetal stress, unspecified; O36.5930 Maternal care for other known or suspected poor fetal growth, third trimester, not applicable or unspecified; Z3A.34 34 weeks gestation of pregnancy; Z87.730 Personal history of (corrected) cleft lip and palate; Z37.0 Single live birth; Z72.0 Tobacco use; Z23 Encounter for immunization
CPT/HCPCS: 59025; 76816; 76819; 76820; 76821; 80053; 80307; 81001; 82570; 82805; 84112; 84156; 84550; 85025; 86850; 86900; 86901; 87086; 88307; G0481; J0690; J0702; J1100; J1200; J2274; J2370; J2405; J2590; J3475; J7120

== ENCOUNTER 2018-01-09 14:55 | Emergency (ER) | payer MEDICAID ==
[~2018-01-09] VITALS: Ht 152.4 cm; Wt 82.0 kg
[~2018-01-09 14:55] MED LIST changes: +ALBU6.7H INH; -CEPH-460 PO; +IBUP-232 PO; +OXYC1TAB63 PO; +PRENTAB7; -ZOFR4TAB PO
[2018-01-09 15:17] VITALS: BP 114/81; PULSE 83; RESP 17; TEMP 98.3; O2SAT 98
[2018-01-09] MEDS ORDERED: MUPI2%T TOPICAL (15:55)
[2018-01-09] MEDS ORDERED: CEPH-460 PO (15:55)
--- NOTE | 2018-01-09 16:00 | PD ---
HPI Chief Complaint: Skin Problem Time Seen by Provider: 15:31 Travel History International Travel<30 days: No Contact w/Intl Traveler<30days: No Traveled to known affect area: No History of Present Illness HPI 22-year-old female presents emergency department status post on December 12, with area of tenderness, erythema and small amount of bloody drainage along the right sided aspect of her scar. She denies fever, chills, or other symptoms. She is just concerned and wanted to get it checked. Pain is 4 out of 10 at most. She has no known drug allergies. 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) Social History Alcohol Use: No Tobacco Use: Yes ( <Half pack a day, about 5 cigarettes) Substance Use: No Allergies-Medications (Allergen,Severity, Reaction): Coded Allergies: No Known Allergies (Verified Allergy, Unknown, 01/09/18) Reported Meds & Prescriptions Reported Meds & Active Scripts Active Bactroban Topical (Mupirocin) 22 Gm Cream 1 Applic TOPICAL TID Keflex (Cephalexin) 500 Mg Cap 500 Mg PO Q8H Review of Systems Except as stated in HPI: all other systems reviewed are Neg General / Constitutional: No: Fever Eyes: No: Visual changes HENT: No: Headaches Cardiovascular: No: Chest Pain or Discomfort Respiratory: No: Shortness of Breath Gastrointestinal: No: Abdominal Pain Genitourinary: No: Dysuria Musculoskeletal: No: Pain Skin: Positive Lesions (See history of present illness per), No Rash Neurologic: No: Weakness Psychiatric: No: Depression Endocrine: No: Polydipsia Hematologic/Lymphatic: No: Easy Bruising Physical Exam Narrative GENERAL: Patient appears in no acute distress. SKIN: Warm and dry. Normal color. Normal turgor. Patient has mild wound dehiscence of the right distal end of her scar with localized induration and mild erythema. There is a very small amount of capillary bleeding noted. There is no palpable abscess or large hematoma formation. Cerumen is not suspected. HEAD: Atraumatic. Normocephalic. EYES: Pupils equal and round. No scleral icterus. No injection or drainage. ENT: No nasal bleeding or discharge. Mucous membranes pink and moist. Pharynx is clear. NECK: Trachea midline. Supple CARDIOVASCULAR: Regular rate and rhythm. RESPIRATORY: No accessory muscle use. Clear to auscultation. Breath sounds equal bilaterally. GASTROINTESTINAL: Abdomen soft, non-tender, nondistended. Hepatic and splenic margins not palpable. MUSCULOSKELETAL: Extremities without clubbing, cyanosis, or edema. No obvious deformities. NEUROLOGICAL: Awake and alert. No obvious cranial nerve deficits. Motor grossly within normal limits. Five out of 5 muscle strength in the arms and legs. Normal speech. PSYCHIATRIC: Appropriate mood and affect; insight and judgment normal. Data Data Last Documented VS Vital Signs Date Time Temp Pulse Resp B/P (MAP) Pulse Ox O2 Delivery O2 Flow Rate FiO2 01/09/18 15:17 98.3 83 17 114/81 (92) 98 MDM Medical Decision Making Medical Screen Exam Complete: Yes Emergency Medical Condition: Yes Medical Record Reviewed: Yes Differential Diagnosis . Mild wound dehiscence. Cellulitis. Narrative Course Patient is medically stable at time of exam. Patient is covered with Keflex 5 mg 3 times daily 10 days. Patient is given mupirocin ointment to be applied twice daily for the next 7 days. Wound care is discussed with the patient. Patient to follow-up as needed. Diagnosis Primary Impression: Encounter for postoperative wound check Patient Instructions: Care For Your Absorbable Stitches (ED), Cellulitis (ED), General Instructions Additional Instructions: Patient is covered with Keflex 5 mg 3 times daily 10 days. Patient is given mupirocin ointment to be applied twice daily for the next 7 days. Wound care is discussed with the patient. Patient to follow-up as needed. Med/Other Pt SpecificInfo: Wound Care Scripts Mupirocin Topical (Bactroban Topical) 22 Gm Cream 1 APPLIC TOPICAL TID for Mgmt Bacterial Infection, #1 TUBE 0 Refills Prov: Irvin Gunter MD 01/09/18 Cephalexin (Keflex) 500 Mg Cap 500 MG PO Q8H for Infection, #10 CAP 0 Refills Prov: Irvin Gunter MD 01/09/18 Disposition: 01 DISCHARGE HOME Condition: Stable Fletcher Kapoor Jan 09, 2018 16:00
== END 2018-01-09 16:09 | disposition home or self-care (01) ==
LOC: NEPK 14:55
DX: Z98.890 Other specified postprocedural states (principal); J45.909 Unspecified asthma, uncomplicated; F17.210 Nicotine dependence, cigarettes, uncomplicated
CPT/HCPCS: 99283